=== PATIENT | female | born 1970 | race Two or more races ===

== ENCOUNTER 2017-10-15 11:55 | Emergency (ER) | payer BC ==
[2017-10-15 11:59] VITALS: BP 128/55; PULSE 88; TEMP 98; BMI 21.4
[2017-10-15] MEDS ORDERED: KETOROLAC TROMETHAMINE 60 MG/2 ML VIAL IM ONE (12:12)
--- NOTE | 2017-10-15 12:21 | PDOC ---
History of Present Illness - General Chief Complaint: Back Pain Stated Complaint: BACK PAIN Time Seen by Provider: 10/15/17 12:04 History Source: Patient Exam Limitations: No Limitations - History of Present Illness Initial Comments: 10/15/17 12:14 CHIEF COMPLAINT: [Lower back pain] HISTORY OF PRESENT ILLNESS 47-year-old female with chronic low back pain and sciatic pain, has received cortisone injections in the past from chronic pain management [place] however she is moved to [facility] and does not have access to her doctor. Pain started one week ago after shoveling snow has been attempting to take Motrin without resolved pain is localized to lower back.[ Nonradiating pain, no neurosensory deficits, no bowel or bladder difficulty incontinence or urinary retention, no saddle anesthesia, no footdrop. No history of IVDU or history of cancer. ] REVIEW OF SYSTEMS: GENERAL: Afebrile, denies any weakness RESPIRATORY: No cough, wheezing, or hemoptysis. CARDIAC: No chest pain or shortness of breath MUSCULOSKELETAL: Pain to generalized lower back. No point tenderness. Pain worse on [right than left. ] SKIN : No erythema, no bruising, no deformity. GI/: Denies any abdominal pain, no urinary difficulty, incontinence or urinary retention. RECTAL: Denies any difficulty this A.m. NEUROLOGICAL: Denies any numbness or tingling. No neurosensory deficits. PHYSICAL EXAM: GENERAL: The patient is awake, alert, and fully oriented, in no acute distress. RESPIRATORY: Lungs clear bilaterally, no rhonchi wheezes or crackles CARDIAC: S1-S2 audible, no murmur rub or gallop MUSCULOSKELETAL: Pain to generalized lower back, nonradiating, no tingling or sensory deficit. Less than 2 second cap refill, +4 popliteal and pedal pulses. GI/: Abdomen soft, nontender, nondistended. No rebound tenderness. No masses palpable. MUSCULOSKELETAL: No spinal point tenderness. Normal reflexive and no deficits to sensation or strength. RECTAL: [Deferred patient with no neurological findings] SKIN: Warm, Dry, normal turgor, no erythema, no edema no bruising. Past History - Past Medical History Allergies/Adverse Reactions: Allergies Allergy/AdvReac Type Severity Reaction Status Date / Time No Known Allergies Allergy Verified 10/15/17 11:56 Home Medications: Ambulatory Orders Cyclobenzaprine HCl [Flexeril 10 mg] 10 mg PO BID PRN #14 tablet MDD 2 10/15/17 Methylprednisolone [Medrol Dose Flaquito] 4 mg PO ASDIR #21 tablet 10/15/17 COPD: No Other medical history: sciatica - Suicide/Smoking/Psychosocial Hx Smoking History: Current every day smoker Have you smoked in the past 12 months: Yes Number of Cigarettes Smoked Daily: 10 Information on smoking cessation initiated: Yes 'Breaking Loose' booklet given: 10/15/17 Hx Alcohol Use: No Drug/Substance Use Hx: No Substance Use Type: None *Physical Exam - Vital Signs Last Vital Signs Temp Pulse Resp BP Pulse Ox 98.0 F 88 18 128/55 100 10/15/17 11:57 10/15/17 11:57 10/15/17 11:57 10/15/17 11:57 10/15/17 11:57 Medical Decision Making - Medical Decision Making 10/15/17 12:21 A/P: Patient with chronic low back pain has been attempting to take Motrin without resolved started to have pain after shoveling snow. I will give Toradol 60 mg IM then reevaluate refer patient to chronic pain management in [place]. *DC/Admit/Observation/Transfer Diagnosis at time of Disposition: Low back pain Qualifiers: Chronicity: chronic Back pain laterality: right Sciatica presence: without sciatica Qualified Code(s): M54.5 - Low back pain; G89.29 - Other chronic pain; G89.29 - Other chronic pain - Discharge Dispostion Disposition: HOME Condition at time of disposition: Stable Admit: No - Prescriptions Prescriptions: Cyclobenzaprine HCl [Flexeril 10 mg] 10 mg PO BID PRN #14 tablet MDD 2 PRN Reason: Pain Methylprednisolone [Medrol Dose Flaquito] 4 mg PO ASDIR #21 tablet - Referrals Referrals: Shawn Hinson MD [Staff Physician] - - Patient Instructions Printed Discharge Instructions: DI for Low Back Pain Additional Instructions: 1. Please return to the emergency department with any numbness, tingling, weakness, numbness or tingling to groin or legs, or loss of bowel or bladder function. 2. Use pain medication as ordered. 3. Please is to followup in the office of Dr. Hinson for evaluation within a week if no improvement. 4. Ice to lower back 5. Refrain from lifting anything above 10 pounds, until pain resolved. - Post Discharge Activity Forms/Work/School Notes: Back to Work
== END 2017-10-15 13:19 | disposition home or self-care (01) ==
LOC: JERFT 11:55
PROC: 3E0233Z Introduction of Anti-inflammatory into Muscle, Percutaneous Approach (ICD-10-PCS; principal; 2017-10-15)
DX: M54.5 Low back pain (principal); G89.29 Other chronic pain; X50.0XXA Overexertion from strenuous movement or load, initial encounter; Y93.H1 Activity, digging, shoveling and raking; Y92.89 Other specified places as the place of occurrence of the external cause; Y99.8 Other external cause status
CPT/HCPCS: 99281-25

== ENCOUNTER 2018-01-08 15:06 | Emergency (ER) | payer BC ==
[2018-01-08 15:18] VITALS: BP 102/76; PULSE 83; TEMP 98.2; BMI 21.4
--- NOTE | 2018-01-08 15:23 | PDOC ---
History of Present Illness - General Chief Complaint: Vomiting/Diarrhea Stated Complaint: Vomiting/Diarrhea Time Seen by Provider: 01/08/18 15:23 - History of Present Illness Initial Comments: 47 year old with history of HLD female with two days of nausea, vomiting, and diarrhea 10 hours after ingestion of salad with Caesar dressing. She states that she ate a salad and realized the dressing was after eating it. Approximately 10 hours later at 4:00 AM on Wednesday. She admits to 10 episodes of non-bloody diarrhea and NBNB vomiting since initiation of symptoms. Denies fevers, chills, cough, SOB, headache, or other symptoms. Has not has any abdominal surgeries in the past. 01/08/18 15:50 01/08/18 15:57 Past History - Past Medical History Allergies/Adverse Reactions: Allergies Allergy/AdvReac Type Severity Reaction Status Date / Time No Known Allergies Allergy Verified 01/08/18 15:14 Home Medications: Ambulatory Orders Cyclobenzaprine HCl [Flexeril 10 mg] 10 mg PO BID PRN #14 tablet MDD 2 10/15/17 Methylprednisolone [Medrol Dose Flaquito] 4 mg PO ASDIR #21 tablet 10/15/17 Ondansetron [Ondansetron Odt] 8 mg PO BID PRN 5 Days #10 tab.rapdis 01/08/18 COPD: No - Immunization History Immunization Up to Date: Yes - Suicide/Smoking/Psychosocial Hx Smoking History: Current every day smoker Have you smoked in the past 12 months: Yes Number of Cigarettes Smoked Daily: 10 Information on smoking cessation initiated: No 'Breaking Loose' booklet given: 10/15/17 Hx Alcohol Use: No Drug/Substance Use Hx: No Substance Use Type: None Review of Systems - Review of Systems Constitutional: No: Chills, Diaphoresis, Fever HEENTM: No: Blurred Vision Respiratory: No: Cough, Orthopnea, Shortness of Breath Cardiac (ROS): No: Chest Pain, Irregular Heart Rate ABD/GI: Yes: Diarrhea, Nausea, Vomiting. No: Blood Streaked Bowels : No: Dysuria, Discharge, Hematuria, Incontinence Musculoskeletal: No: Back Pain, Joint Pain Integumentary: No: Bruising, Erythema, Flushing, Lesions Neurological: No: Numbness, Paresthesia Psychiatric: No: Anxiety, Depression *Physical Exam - Vital Signs Last Vital Signs Temp Pulse Resp BP Pulse Ox 98.2 F 83 16 102/76 98 01/08/18 15:14 01/08/18 15:14 01/08/18 15:14 01/08/18 15:14 01/08/18 15:14 - Physical Exam General Appearance: Yes: Nourished, Appropriately Dressed. No: Apparent Distress HEENT: positive: EOMI, DHARA, Normal ENT Inspection, Normal Voice Neck: positive: Trachea midline, Normal Thyroid, Supple. negative: Tender, Rigid Respiratory/Chest: positive: Lungs Clear, Normal Breath Sounds. negative: Chest Tender, Respiratory Distress Cardiovascular: positive: Regular Rhythm, Regular Rate Gastrointestinal/Abdominal: positive: Tender (diffuse tenderness but worse in LUQ and LLQ), Flat, Soft, Increased Bowel Sounds. negative: Normal Bowel Sounds Musculoskeletal: positive: Normal Inspection. negative: CVA Tenderness Extremity: positive: Normal Capillary Refill, Normal Inspection, Normal Range of Motion. negative: Tender Integumentary: positive: Normal Color, Dry, Warm Neurologic: positive: Fully Oriented, Alert, Normal Mood/Affect, Normal Response , Motor Strength 5/5 ED Treatment Course - LABORATORY CBC & Chemistry Diagram: 01/08/18 15:56 01/08/18 15:56 Medical Decision Making - Medical Decision Making 47 year old female with nausea, vomiting, and diarrhea in the setting of egg/ milk based food ingestion in the last 36 hours. Labs WNL, UA, clean , HCG negative, patient's symptoms improved with Pepcid/ Zofran, and tolerating PO. She was unable to produce a stool sample. This was likely a viral/ food borne illness. Will DC home with short course of Zofran and return precautions. 01/08/18 17:27 *DC/Admit/Observation/Transfer Diagnosis at time of Disposition: Gastroenteritis - Discharge Dispostion Disposition: HOME Condition at time of disposition: Improved Decision to Admit order: No - Prescriptions Prescriptions: Ondansetron [Ondansetron Odt] 8 mg PO BID PRN 5 Days #10 tab.rapdis PRN Reason: Nausea And/Or Vomiting - Referrals Referrals: [facility] [place] [Provider Group] - Patient Instructions Printed Discharge Instructions: DI for Viral Gastroenteritis -- Adult Additional Instructions: It is unclear what the exact cause of your illness is. You likely have a viral infection of your stomach or a reaction to that food that you ate. Your symptoms will improve with fluids and light food ingestion. Please use your medication as needed up to twice a day. Please return to the ED if you have new or worsening symptoms. Please follow up with your PCP next week. - Post Discharge Activity
[2018-01-08] MEDS ORDERED: SODIUM CHLORIDE 0.9% 500 ML INFUS.BAG IV ONE (15:43)
[2018-01-08] MEDS ORDERED: ONDANSETRON 4 MG/2 ML VIAL IVPUSH ONE (15:43)
[2018-01-08] MEDS ORDERED: FAMOTIDINE 20 MG/50 ML IVPB 20 MG/50 ML MG IVPB ONE ×2 (15:44→15:48)
[2018-01-08] MEDS ORDERED: ONDANSETRON 4 MG/2 ML VIAL ONE (15:48)
--- NOTE | 2018-01-08 15:59 | PDOC ---
Attending Attestation - HPI HPI: 01/08/18 16:04 The patient is a 47 year old female with a significant PMH of HLD who presents to the emergency department with diarrhea, abdominal cramping, and vomiting since yesterday. The patient states she ate chicken wings with an sauce two days ago. The patient reports the diarrhea began first at 4AM the following morning with associated mild abdominal cramping. The patient states she subsequently had multiple episodes of nonbloody, nonbilious vomit. The patient describes the abdominal discomfort as localized in the left upper and left lower quadrant, nonradiating. The patient denies any alleviating or exacerbating factors for her symptoms. Denies recent travel or sick contact. The patient denies chest pain, shortness of breath, headache and dizziness. Denies fever, chills, and constipation. Denies dysuria, frequency, urgency and hematuria. Allergies: NKA Past surgical history: None reported, Social history: Current everyday smoker; a pack a day. No reported alcohol or drug use. - Physicial Exam PE: 01/08/18 16:05 Vitals: Triage vital signs reviewed General Appearance: No acute distress, well nourished, well developed Head: Atraumatic Cardiac: Regular rate and rhythm, no murmurs, no rubs, no gallops Lungs: Clear to auscultation bilateral, good air movement bilaterally Abdomen: (+) Mild left upper and left lower quadrant discomfort. Soft, nondistended, normal bowel sounds. Extremities: Full range of motion to all extremities, no cyanosis, clubbing, or edema Skin: Warm and dry, no rashes or lesions, no rash, no petechiae Neuro: AOX3; Cranial Nerves 2-12 grossly intact, Strength intact to all extremities, Sensation intact to all extremities, gait normal Psych: Normal mood, normal affect - Medical Decision Making 01/08/18 16:09 The patient is a 47 year old female with a significant PMH of HLD who presents to the emergency department with diarrhea, abdominal cramping, and vomiting since yesterday. The patient states she ate chicken wings with an sauce two days ago. The patient reports the diarrhea began first at 4AM the following morning with associated mild abdominal cramping. The patient states she subsequently had multiple episodes of nonbloody, nonbilious vomit. The patient describes the abdominal discomfort as localized in the left upper and left lower quadrant, nonradiating. The patient denies any alleviating or exacerbating factors for her symptoms. Denies recent travel or sick contact. The patient denies chest pain, shortness of breath, headache and dizziness. Denies fever, chills, and constipation. Denies dysuria, frequency, urgency and hematuria. <Allison Blount - Last Filed: 01/08/18 16:06> - Resident Resident Name: Maldonado Hadley - ED Attending Attestation I have performed the following: I have examined & evaluated the patient, The case was reviewed & discussed with the resident, I agree w/resident's findings & plan, Exceptions are as noted - Medical Decision Making No significant abdominal pain on exam. Given presence of triad of nausea vomiting diarrhea history and examination most consistent with foodborne versus viral GI illness. We'll check labs antiemetics observed and reassessed to follow up labs and reasses. <Mitchell Brice - Last Filed: 01/09/18 09:59>
[2018-01-08 16:18] LABS: BASO % 0.6 % (0-2.0); EOS % 0.9 % (0-4.5); HEMATOCRIT 40.9 % (32.4-45.2); HEMOGLOBIN 13.4 GM/dL (10.7-15.3); LYMPH % 26.9 % (8-40); MCH 28.5 pg (25.7-33.7); MCHC 32.8 g/dl (32.0-36.0); MEAN CELL VOLUME 86.9 fl (80-96); MEAN PLT VOLUME 9.5 fl (7.5-11.1); MONO % 18.6 % (3.8-10.2); PLATELET COUNT 196 K/MM3 (134-434); RDW 14.4 % (11.6-15.6); WHITE BLOOD COUNT 4.3 K/mm3 (4.0-10.0)
[2018-01-08 16:48] LABS: ALBUMIN 3.3 g/dl (3.4-5.0); ALK PHOS 43 U/L (45-117); AMYLASE 37 U/L (25-115); ANION GAP 6 (8-16); BILIRUBIN,TOTAL 0.2 mg/dL (0.2-1.0); BLOOD UREA NITROGEN 13 mg/dL (7-18); CHLORIDE 107 mmol/L (98-107); CO2 26 mmol/L (21-32); CREATININE 0.9 mg/dL (0.55-1.02); GLUCOSE,RANDOM 90 mg/dL (74-106); LIPASE 54 U/L (73-393); POTASSIUM 4.2 mmol/L (3.5-5.1); SGOT/AST 8 U/L (15-37); SGPT/ALT 15 U/L (12-78); SODIUM 139 mmol/L (136-145); TOT PROT 6.5 g/dl (6.4-8.2)
[2018-01-08 17:36] LABS: URINE APPEARANCE CLEAR; URINE BILIRUBIN NEGATIVE (<2.0 mg/dL); URINE COLOR STRAW; URINE GLUCOSE (UA) NEGATIVE (NEGATIVE); URINE KETONE TRACE (NEGATIVE); URINE LEUK ESTERASE NEGATIVE (NEGATIVE); URINE NITRITE NEGATIVE (NEGATIVE); URINE PROTEIN NEGATIVE (NEGATIVE); URINE UROBILINOGEN NEGATIVE mg/dL (0.2-1.0)
[2018-01-08 18:05] LABS: HCG,QUALITATIVE URINE NEGATIVE
== END 2018-01-08 19:22 | disposition home or self-care (01) ==
LOC: JER 15:06
DX: K52.9 Noninfective gastroenteritis and colitis, unspecified (principal); E78.5 Hyperlipidemia, unspecified; F17.210 Nicotine dependence, cigarettes, uncomplicated
CPT/HCPCS: 36415; 80053; 81003; 82150; 83690; 84703; 85025; 99281-25

== ENCOUNTER 2019-05-04 18:53 | Emergency (ER) | payer BC ==
--- NOTE | 2019-05-04 18:59 | PDOC ---
Rapid Medical Evaluation Time Seen by Provider: 05/04/19 18:56 Medical Evaluation: Allergies Allergy/AdvReac Type Severity Reaction Status Date / Time No Known Allergies Allergy Verified 01/08/18 15:14 05/04/19 18:56 I have performed a brief in-person evaluation of this patient. The patient presents with a chief complaint of: cough x 3 weeks, used DOD on 04/26, and got bromfed, then went to urgent care and got azthromycin and sudafed on wednesday, denies fever Pertinent physical exam findings: dry cough I have ordered the following: nothing The patient will proceed to the ED for further evaluation. Discharge Disposition - Diagnosis Cough - Referrals - Patient Instructions - Post Discharge Activity
[2019-05-04 19:01] VITALS: BP 108/84; PULSE 85; TEMP 98.4; BMI 20.2
--- NOTE | 2019-05-04 20:07 | PDOC ---
History of Present Illness - General Chief Complaint: Cold Symptoms Stated Complaint: COLD SYMPTOMS Time Seen by Provider: 05/04/19 18:56 History Source: Patient Exam Limitations: No Limitations - History of Present Illness Initial Comments: 05/04/19 20:02 HISTORY OF PRESENT ILLNESS: 48-year-old woman presents to the emergency department for evaluation of upper respiratory type illness for the past 3 weeks. Patient was seen at a [facility] urgent care and was instructed to take [id number] remedies. Patient was then seen at outpatient urgent care center and was given azithromycin for which she has taken 3 days worth. Patient reports continued cough and is looking for resolution of her symptoms. Patient smokes approximately 5 cigarettes daily. No recent travel or sick contacts. PAST MEDICAL HISTORY: Denies past medical history SURGICAL HISTORY: Denies ALLERGIES: No known drug allergies REVIEW OF SYSTEMS General/Constitutional: Denies fever or chills. Denies weakness, weight change. HEENT: See HPI Cardiovascular: Denies chest pain or shortness of breath. Respiratory: See HPI Gastrointestinal: Denies nausea, vomiting, diarrhea or constipation. Denies rectal bleeding. Genitourinary: Denies dysuria, frequency, or change in urination. Musculoskeletal: Denies joint or muscle swelling or pain. Denies neck or back pain. Skin and breasts: Denies rash or easy bruising. Neurologic: Denies headache, vertigo, loss of consciousness, or loss of sensation. Psychiatric: Denies depression or anxiety. Endocrine: Denies increased thirst. Denies abnormal weight change. Hematologic/Lymphatic: Denies anemia, easy bleeding, or history of blood clots. Allergic/Immunologic: Denies hives or skin allergy. Denies latex allergy. PHYSICAL EXAM General Appearance: Well-appearing, appropriately dressed. No apparent distress , no intoxication. HEENT: EOMI, PERRLA, normal ENT inspection, normal voice, TMs normal, pharynx normal. No conjunctival pallor. No photophobia, scleral icterus. Neck: Supple. Trachea midline. No tenderness, rigidity, carotid bruit, stridor , lymphadenopathy, or thyromegaly. Respiratory/Chest: Lungs CTAB. No shortness of breath, chest tenderness, respiratory distress, accessory muscle use. No crackles, rales, rhonchi, stridor , wheezing, dullness Cardiovascular: RRR. S1, S2. No JVD, murmur, bradycardia, tachycardia. Vascular Pulses: Dorsalis-Pedis (R): 2+, Dorsalis-Pedis (L): 2+ Gastrointestinal/Abdominal: Normal bowel sounds. Abdomen soft, non-distended. No tenderness or rebound tenderness. No organomegaly, pulsatile mass, guarding, hernia, hepatomegaly, splenomegaly. Lymphatic: No adenopathy, tenderness. Musculoskeletal/Extremities: Normal inspection. FROM of all extremities, normal capillary refill. Pelvis Stable. No CVA tenderness. No tenderness to extremities, pedal edema, swelling, erythema or deformity. Integumentary: Appropriate color, dry, warm. No cyanosis, erythema, jaundice or rash Neurologic: hydropress operator II-XII intact. Fully oriented, alert. Appropriate mood/affect. Motor strength 5/5. No appreciable EOM palsy, facial droop or sensory deficit. Past History - Past Medical History Allergies/Adverse Reactions: Allergies Allergy/AdvReac Type Severity Reaction Status Date / Time No Known Allergies Allergy Verified 01/08/18 15:14 Home Medications: Ambulatory Orders Cyclobenzaprine HCl [Flexeril 10 mg] 10 mg PO BID PRN #14 tablet MDD 2 10/15/17 Methylprednisolone [Medrol Dose Flaquito] 4 mg PO ASDIR #21 tablet 10/15/17 Ondansetron [Ondansetron Odt] 8 mg PO BID PRN 5 Days #10 tab.rapdis 01/08/18 Benzonatate [Tessalon Pearls -] 200 mg PO TID #42 cap 05/04/19 COPD: No - Immunization History Immunization Up to Date: Yes - Psycho Social/Smoking Cessation Hx Smoking History: Current every day smoker Have you smoked in the past 12 months: Yes Number of Cigarettes Smoked Daily: 4 Information on smoking cessation initiated: No 'Breaking Loose' booklet given: 10/15/17 Hx Alcohol Use: No Drug/Substance Use Hx: No Substance Use Type: None *Physical Exam - Vital Signs Last Vital Signs Temp Pulse Resp BP Pulse Ox 98.4 F 85 16 108/84 100 05/04/19 18:57 05/04/19 18:57 05/04/19 18:57 05/04/19 18:57 05/04/19 18:57 ED Treatment Course - RADIOLOGY Radiology Studies Ordered: Category Date Time Status CHEST PA & LAT [RAD] Stat Radiology 05/04/19 19:46 Ordered Medical Decision Making - Medical Decision Making 05/04/19 20:06 A/P: 48-year-old woman with dry cough for 3 weeks Patient likely with a viral illness. Patient is already taking azithromycin. Chest x-ray Likely discharge home to continue supportive treatment with prescription for Tessalon Perles. 05/04/19 20:25 Chest x-rays read by Dr. Albrecht: Unremarkable examination without evidence of acute lung disease. I will discharge patient home with prescription for Tessalon Perles. 05/04/19 22:37 Discharge - Discharge Information Problems reviewed: Yes Clinical Impression/Diagnosis: Cough Condition: Stable Disposition: HOME - Admission No - Additional Discharge Information Prescriptions: Benzonatate [Tessalon Pearls -] 200 mg PO TID #42 cap - Follow up/Referral - Patient Discharge Instructions Additional Instructions: Rest, drink lots of fluids: Teas, water, soups, Pedialyte Saltwater gargles Steamy showers/seem to face break up mucus Avoid contact with others until fevers and cough resolved Lots of handwashing and good hygiene Continue [id number] medications for symptomatic relief Tylenol or Motrin for fever and pain Followup with private physician in one to 2 days as needed Return to emergency department for worsened symptoms, fevers, dehydration - Post Discharge Activity
== END 2019-05-04 20:29 | disposition home or self-care (01) ==
LOC: JERFT 18:53
DX: R05 Cough (principal); F17.210 Nicotine dependence, cigarettes, uncomplicated
CPT/HCPCS: 71046-TC-FY; 99281-25